=== PATIENT | female | born 1975 | race Two or more races ===

== ENCOUNTER 2021-12-02 10:25 | Day surgery (SDC) | payer OTHER ==
[2021-11-30 08:50] VITALS: BMI 21.5
[2021-12-02 11:53] VITALS: TEMP 97.8
[2021-12-02 11:59] VITALS: BP 97/61; PULSE 60
== END 2021-12-02 12:10 | disposition home or self-care (01) ==
LOC: FASU-ENDO 10:25
PROVIDERS: ATTEND Internal Medicine Gastroenterology
PROC: 0DJD8ZZ Inspection of Lower Intestinal Tract, Via Natural or Artificial Opening Endoscopic (ICD-10-PCS; principal; 2021-12-02 11:09)
DX: Z12.11 Encounter for screening for malignant neoplasm of colon (principal); K64.1 Second degree hemorrhoids
CPT/HCPCS: 84703